=== PATIENT | female | born 1940 | race Caucasian/White ===

== ENCOUNTER → 2018-10-12 11:40 | Outpatient (CLI) | payer MEDICARE, OTHER, SELFPAY ==
[2018-10-12 13:39] LABS: Erythrocyte Sedimentation Rate 66 MM/HR (0-20)
== END ==
PROVIDERS: PCP Family Medicine; Visit Provider Family Medicine
DX: R29.818 Other symptoms and signs involving the nervous system (principal)
CPT/HCPCS: 36415; 85651

== ENCOUNTER → 2018-10-17 08:04 | Outpatient (CLI) | payer MEDICARE, OTHER, SELFPAY ==
--- NOTE | 2018-10-17 08:05 | DI.MRI.S_ITS ---
PROCEDURE: MR HEAD/BRAIN WO CON INDICATIONS: change in frequency of auras+ headaches L side TECHNIQUE: Non-contrast axial T1 spin echo, axial T2 fast spin echo, sagittal and axial FLAIR, coronal T2 fast spin echo, axial gradient echo, axial diffusion and ADC through the brain. COMPARISON: [facility], MR, MR BRAIN W&WO CON, 11/28/2015, 9:50. FINDINGS: Image quality: Excellent. CSF spaces: Ventricles appear symmetric in size and shape. Basal cisterns are patent. No extra-axial fluid collections. Brain: No intracranial bleeds or mass effects. There is cerebral volume loss for age. There are periventricular and deep white matter chronic small vessel ischemic changes. Brainstem appears normal. Diffusion-weighted images show no acute ischemic insults. No chronic ischemic insults. Normal intravascular flow voids are present. Skull and face: Calvarial bone marrow is normal in signal. Orbits are normal. Sinuses: Bilateral mastoid fluid is present. Retention cysts within the right anterior ethmoid and right anterior maxillary sinuses are present. IMPRESSION: 1. No acute process. No recent infarct.. 2. Volume loss and small vessel ischemic disease. 3. Mastoid fluid. Dictated by: Andres Moreno M.D. on 10/19/2018 at 9:51 Approved by: Andres Moreno M.D. on 10/19/2018 at 9:54
== END ==
PROVIDERS: PCP Family Medicine; Visit Provider Family Medicine
DX: R29.818 Other symptoms and signs involving the nervous system (principal); R51 Headache
CPT/HCPCS: 70551

== ENCOUNTER 2022-09-20 20:17 | Emergency (ER) | payer MEDICARE, OTHER, SELFPAY ==
[2022-09-20] VITALS (10 sets, daily range): BP systolic 113–142; BP diastolic 56–69; PULSE 112–137; RESP 19–35; TEMP 37.2; O2SAT 96–100; BMI 33.6
--- NOTE | 2022-09-20 21:31 | ED.NAVMDI ---
HPI - Nausea/Vomiting/Diarrhea General Chief complaint: Nausea/Vomiting/Diarrhea Stated complaint: Sinus/ear/jaw pain, bowel issues for 5 days Time Seen by Provider: 09/20/22 21:23 Source: patient Mode of arrival: Ambulatory Limitations: no limitations History of Present Illness HPI Narrative: Patient is a 82-year-old male who states she is had diarrhea for the past 5 days. She also states she is been having some issues with her right sinuses and ear pain and jaw pain. No rashes. No chest pain. No shortness of breath. No urinary symptoms. She is not taken any of her medicines in the past couple days because she is afraid of eating or drinking causing her diarrhea to be worse. She reports no travel. No recent antibiotics. No abdominal pain. No black colored stools or dark-colored stools. Related Data Home Medications Medication Instructions Recorded Confirmed amlodipine 10 mg tablet (Norvasc) 10 mg PO QDAY ##0 04/16/13 10/22/18 atorvastatin 40 mg tablet (Lipitor) 40 mg PO HS ##0 04/16/13 10/22/18 levothyroxine 125 mcg tablet 125 mcg PO QDAY ##0 04/16/13 10/22/18 (Synthroid) losartan 100 mg tablet (Cozaar) 100 mg PO QDAY ##0 04/16/13 10/22/18 topiramate 25 mg tablet (Topamax) 25 mg PO BID ##0 04/16/13 10/22/18 Midren PO 10/12/18 10/22/18 apixaban 5 mg tablet 5 mg PO BID 10/12/18 10/22/18 cevimeline 30 mg capsule 30 mg PO ONCE 10/12/18 10/22/18 cyclosporine 0.05 % eye drops in a EYE-BOTH 10/12/18 10/22/18 dropperette (Restasis) ferrous sulfate 325 mg (65 mg 325 mg PO DAILY 10/12/18 10/22/18 iron) tablet flecainide 100 mg tablet 100 mg PO Q12H 10/12/18 10/22/18 hydroxychloroquine 200 mg tablet 200 mg PO DAILY 10/12/18 10/22/18 insulin glargine 100 unit/mL (3 10 unit SUBCUT DAILY 10/12/18 10/22/18 mL) subcutaneous pen (Lantus Solostar U-100 Insulin) lamotrigine 100 mg tablet 50 mg PO BID 10/12/18 10/22/18 (Lamictal) metformin 500 mg tablet,extended 500 mg PO QPM 10/12/18 10/22/18 release 24 hr metoprolol succinate 50 mg 50 mg PO BID 10/12/18 10/22/18 tablet,extended release 24 hr (Toprol XL) nystatin-triamcinolone topical applictn topical 10/12/18 10/22/18 cream psyllium 1 tbsp PO DAILY 10/12/18 10/22/18 Previous Rx's Medication Instructions Recorded prednisone 5 mg tablet 5 mg PO QID #90 tabs 10/22/18 Allergies Allergy/AdvReac Type Severity Reaction Status Date / Time benazepril Allergy Severe ANGIOEDEMA Verified 09/20/22 20:48 morphine AdvReac Intermediate BP DROP Verified 09/20/22 20:48 niacin AdvReac Mild SEVERE Verified 09/20/22 20:48 FLUSH Review of Systems Constitutional Constitutional: Reports system reviewed and no additional complaints, except as documented ENT Ears, Nose, Mouth, and Throat: Reports system reviewed and no additional complaints, except as documented Respiratory Respiratory: Reports system reviewed and no additional complaints, except as documented Gastrointestinal Gastrointestinal: Reports system reviewed and no additional complaints, except as documented Integumentary/Breasts Skin/Breast: Reports system reviewed and no additional complaints, except as documented Neurologic Neurologic: Reports system reviewed and no additional complaints, except as documented Hematologic/Lymphatic On Anticoagulants: No Patient History Medical History Atrial fibrillation Social History Smoking Status: Former smoker Smoking Status: Former smoker alcohol intake frequency: holidays/special occasions only Substance Use Type: does not use Exam Initial Vital Signs Initial Vital Signs: Vital Signs Temperature 99.0 F 09/20/22 20:48 Pulse Rate 137 H 09/20/22 20:48 Respiratory Rate 22 09/20/22 20:48 Blood Pressure 113/58 L 09/20/22 20:48 Pulse Oximetry 100 09/20/22 20:48 Oxygen Delivery Method 09/20/22 20:48 Const General: cooperative and comfortable HENMT Head: normal to inspection and normocephalic Ears: TM normal on the right and EAC's normal Face and sinus: normal facial exam, no abrasions, no erythema and no edema Mouth: oral mucosae normal Resp Effort & Inspection: normal respiratory effort Auscultation: clear to auscultation bilaterally Cardio Rate: tachycardic Rhythm: regular rhythm GI Inspection: normal to inspection Palpation: soft, No firm and No tender Skin General: no rashes or lesions noted Neuro General: patient alert, patient awake and moves all extremities Extrem General: normal to inspection and capillary refill normal Course Orders Ordered: ED Orders 09/21/22 EKG-12 Lead Routine 09/21/22 00:14 GI Panel (Film Array) Stat Discontinued Medications Sodium Chloride (Normal Saline 0.9%) 1,000 mls @ 1,000 mls/hr IV BOLUS ONE Stop: 09/20/22: Last Infusion: 09/20/22 22:41 Dose: 0 mls/hr Documented By: Admin: 09/20/22 21:41 Dose: 1,000 mls/hr Documented By: JOSEMANUEL Vital Signs Vital signs: Vital Signs - 8 hr 09/20/22 23:30 09/21/22 00:00 09/21/22 00:24 Temperature 97.4 F L Pulse Rate 112 H 112 H 108 H Respiratory Rate 25 H 23 18 Blood Pressure 128/70 Pulse Oximetry 97 90 L 95 Oxygen Delivery Method Room Air MDM - Nausea/Vomiting/Diarrhea Differential Diagnosis Differential diagnosis: Likely traveler's diarrhea, food poisoning, gastroenteritis, clostridium difficile infection and dehydration Condition is:: Improved Chronic Condition is having:: Mild excerbation Lab Data 09/20/22 21:10 09/20/22 21:10 Labs: Lab Results 09/20/22 09/20/22 09/20/22 Range/Units 21:10 21:10 23:55 WBC 0.3 L* (4.5-11.0) X10^3/uL RBC 2.69 L (4.0-5.2) X10^6/uL Hgb 8.8 L (12.0-16.0) g/dL Hct 26.8 L (36-46) % MCV 99.5 (80-100) fL MCH 32.9 (26-34) PG MCHC 33.0 (30-36) % RDW 17.0 H (11.6-14.8) % Plt Count 78 L (150-400) X10^3/uL Neut % (Auto) Not Reportable Lymph % (Auto) Not Reportable [place] % (Auto) Not Reportable Eos % (Auto) Not Reportable Baso % (Auto) Not Reportable Lymph # (Auto) Not Reportable [place] # (Auto) Not Reportable Baso # (Auto) Not Reportable Sodium 135 L (137-145) mmol/L Potassium 3.6 (3.4-5.1) mmol/L Chloride 100 (98-107) mmol/L Carbon Dioxide 21 L (22-32) mmol/L BUN 23 H (7-17) mg/dL Creatinine 1.29 H (0.52-1.04) mg/dL Estimated GFR 42 L (>60) mL/min BUN/Creatinine Ratio 17.8 (6-22) Glucose 137 H (80-110) mg/dL Calcium 7.8 L (8.4-10.2) mg/dL Total Bilirubin 1.5 H (0.2-1.3) mg/dL AST 89 H (14-36) IU/L ALT 77 H (<35) IU/L Alkaline Phosphatase 126 (38-126) U/L Total Protein 7.1 (6.3-8.2) g/dL Albumin 3.6 (3.5-5.0) g/dL Globulin 3.5 (1.7-4.1) g/dL Albumin/Globulin Ratio 1.0 (1.0-2.8) Lipase 50 (23-300) U/L Stl C. cayetanensis PCR Not detected (Not Detect) Stool Rotavirus (PCR) Not detected (Not Detect) Stool Adenovirus (PCR) Not detected (Not Detect) Stool Astrovirus (PCR) Not detected (Not Detect) Stool Cryptosporidium PCR Not detected (Not Detect) Stl E.coli Shiga Tox PCR Not detected (Not Detect) St Sh/Enteroin Ecoli PCR Not detected (Not Detect) Stool E coli O157 PCR Not Reportable Stl Enterotoxigenic E PCR Not detected (Not Detect) Stool EPEC (PCR) Not detected (Not Detect) Stl E. histolytica PCR Not detected (Not Detect) Stool Giardia Lamblia PCR Not detected (Not Detect) Stool Sapovirus (PCR) Not detected (Not Detect) Stl P. shigelloides PCR Not detected (Not Detect) St Y.enterocolitica PCR Not detected (Not Detect) Stool Vibrio (PCR) Not detected (Not Detect) Stl Vibrio cholerae PCR Not detected (Not Detect) Stl Enteroaggr Ecoli PCR Not detected (Not Detect) Stl Norovirus GI/GII PCR Not detected (Not Detect) Campylobacter (PCR) Not detected (Not Detect) C. difficile Tox (PCR) Not detected (Not Detect) Salmonella (PCR) Not detected (Not Detect) ECG Data Attestation: I personally reviewed and interpreted this ECG as follows: Interpretation: Sinus tachycardia Ventricular rate [address] T wave change MDM Narrative Medical decision making narrative: Patient does have a benign exam. Labs unremarkable. Stool studies unremarkable. Patient has not taken any for medicines in the past couple days given the amount of diarrhea that she is had suspect that this is why her heart rate is elevated. She received fluids. Her heart rate improved. After the fluid she stated that she felt much better. She tolerated oral intake. Has no indication for antibiotics. Will discharge patient home with instructions to continue to take all of her medications. No indication for antibiotics. Patient expressed understanding and agreement. Discharge Plan Departure Patient Disposition: Home Clinical Impression: Diarrhea Instructions: Diarrhea Activity Restrictions/Additional Instructions: I will contact you in the morning with the results of the stool studies that were still pending at the time of your discharge. Continue to take all of your medications as directed. Be sure to increase your fluid intake. Return to the emergency department for any new symptoms. Prescriptions: No Action levothyroxine [Synthroid] 125 MCG tablet 125 mcg PO QDAY Qty: 0 atorvastatin [Lipitor] 40 MG tablet 40 mg PO HS Qty: 0 losartan [Cozaar] 100 MG tablet 100 mg PO QDAY Qty: 0 amlodipine [Norvasc] 10 MG tablet 10 mg PO QDAY Qty: 0 topiramate [Topamax] 25 MG tablet 25 mg PO BID Qty: 0 prednisone 5 mg tablet 5 mg PO QID Qty: 90 0RF Rx Instructions: Four per day for 3 days. Three a day for 3 days. Then 2 a day. Follow-up with PCP by 1 week. apixaban 5 mg tablet 5 mg PO BID cevimeline 30 mg capsule 30 mg PO ONCE flecainide 100 mg tablet 100 mg PO Q12H hydroxychloroquine 200 mg tablet 200 mg PO DAILY Lantus Solostar U-100 Insulin 100 unit/mL (3 mL) insulin pen 10 unit SUBCUT DAILY ferrous sulfate 325 mg (65 mg iron) tablet 325 mg PO DAILY lamotrigine [Lamictal] 100 mg tablet 50 mg PO BID metformin 500 mg tablet extended release 24 hr 500 mg PO QPM nystatin-triamcinolone cream TOP psyllium powder 1 tbsp PO DAILY Restasis 0.05 % dropperette EYE-BOTH metoprolol succinate [Toprol XL] 50 mg tablet extended release 24 hr 50 mg PO BID Midren PO Referrals: Ximena Benson MD [Primary Care Provider] - Stand Alone Forms: Patient Portal/API
[2022-09-20 21:34] LABS: Hematocrit 26.8 % (36-46); Hemoglobin 8.8 g/dL (12.0-16.0); Mean Corpuscular Hemoglobin 32.9 PG (26-34); Mean Corpuscular Volume 99.5 fL (80-100); Platelet Count 78 X10^3/uL (150-400); Red Blood Cell Count 2.69 X10^6/uL (4.0-5.2)
[2022-09-20 21:36] LABS: Alanine Aminotransferase 77 IU/L (<35); Albumin 3.6 g/dL (3.5-5.0); Alkaline Phosphatase 126 U/L (38-126); Aspartate Aminotransferase 89 IU/L (14-36); BUN Creatinine Ratio 17.8 (6-22); Bilirubin Total 1.5 mg/dL (0.2-1.3); Blood Urea Nitrogen 23 mg/dL (7-17); Calcium 7.8 mg/dL (8.4-10.2); Carbon Dioxide 21 mmol/L (22-32); Chloride 100 mmol/L (98-107); Estimated Glomerular Filt Rate 42 mL/min (>60); Globulin 3.5 g/dL (1.7-4.1); Glucose 137 mg/dL (80-110); HEMOLYSIS < 15 (0-50); Lipase 50 U/L (23-300); Potassium 3.6 mmol/L (3.4-5.1); Sodium 135 mmol/L (137-145); Total Protein 7.1 g/dL (6.3-8.2)
[2022-09-20 21:38] LABS: Add Manual Diff / Slide Review NO
[2022-09-20 21:40] LABS: White Blood Cell Count 0.3 X10^3/uL (4.5-11.0)
[2022-09-20] MEDS: SODIUM CHLORIDE 0.9% 1,000 ML 1000 ML IV (21:41)
[2022-09-21] VITALS: PULSE 112; RESP 23; O2SAT 90
[2022-09-21 00:24] VITALS: BP 128/70; PULSE 108; RESP 18; TEMP 36.3; O2SAT 95
[2022-09-21 02:39] LABS: Adenovirus F 40/41 Not Detected (Not Detect); Campylobacter Not Detected (Not Detect); Clostridium difficile toxin AB Not Detected (Not Detect); Cryptosporidium Not Detected (Not Detect); Cyclospora cayetanensis Not Detected (Not Detect); Entamoeba histolytica Not Detected (Not Detect); Enteroaggregative E.coli Not Detected (Not Detect); Enteropathogenic E.coli Not Detected (Not Detect); Enterotoxigenic E.coli It/st Not Detected (Not Detect); Giardia lamblia Not Detected (Not Detect); Plesiomonsa shigelloides Not Detected (Not Detect); Salmonella Not Detected (Not Detect); Shiga-like toxin-prod E.coli Not Detected (Not Detect); Shigella/Enteroinvasive E.coli Not Detected (Not Detect); Vibrio Not Detected (Not Detect); Vibrio cholerae Not Detected (Not Detect); Yersinia enterocolitica Not Detected (Not Detect)
[2022-09-21 02:40] LABS: Astrovirus Not Detected (Not Detect); Norovirus GI/GII Not Detected (Not Detect); Rotavirus A Not Detected (Not Detect); Sapovirus Not Detected (Not Detect)
== END 2022-09-21 00:26 | disposition home or self-care (01) ==
PROVIDERS: Emergency Provider Emergency Medicine; PCP Family Medicine
DX: R19.7 Diarrhea, unspecified (principal); H92.01 Otalgia, right ear; R00.0 Tachycardia, unspecified
CPT/HCPCS: 36415; 80053; 83690; 85025; 87507; 93005; 99284

== ENCOUNTER → 2023-05-16 09:59 | Outpatient (CLI) | payer MEDICARE, OTHER, SELFPAY ==
--- NOTE | 2023-05-16 | DI.NM.S_ITS ---
PROCEDURE: NM ISIAH PERF SPECT R&S PHARM Rest and pharmacological stress myocardial perfusion SPECT with gated imaging and ejection fraction RADIOPHARMACEUTICAL: 12 mCi Tc-99m tetrafosmin IV at rest and 27.1 mCi Tc-99m tetrafosmin IV at peak effect of pharmacological stress. A [id number] was performed. INDICATIONS: CHEST PAIN TECHNIQUE: Radiopharmaceutical was injected at peak stress test, and also at rest. SPECT images were obtained. SPECT myocardial perfusion images were displayed in short axis, horizontal long axis, and vertical long axis views. Gated images were reviewed using [employer] Software software. COMPARISON: None. CARDIAC STRESS: A pharmacologic stress test was performed under the supervision of an attending staff, using an infusion of regadenoson 0.4 mg IV. Hemodynamic data: There is normal blood pressure and heart rate response to pharmacologic stress. Symptoms: The patient denied anginal chest pain. EKG: No diagnostic changes of ischemia; no ectopy. FINDINGS: Raw data: There is good myocardial uptake of radiotracer. No significant motion artifacts. [id number] ratio is 0.28 (normal is less than 0.38 for tetrafosmin tracer). Left ventricle function: Gated images demonstrate normal left ventricular wall thickening. No segmental wall motion abnormalities. No transient ischemic dilation; TID is 1.0 (normal less than 1.3). Left ventricle resting end diastolic volume is 76 mL. Left ventricle stress ejection fraction is >75%; normal range is above 45%. Myocardial perfusion: There is normal distribution of activity in the right and left ventricular myocardium. No fixed or reversible perfusion defects. IMPRESSION: Low risk study. No evidence of pharmacologic induced ischemia or scar. Normal LV size with hyperdynamic function. Dictated by: Nancy Horn D.O. on 05/16/2023 at 16:22 Approved by: Nancy Horn D.O. on 05/16/2023 at 16:23
== END ==
PROVIDERS: PCP Family Medicine; Referring Provider Internal Medicine Interventional Cardiology; Visit Provider Internal Medicine Interventional Cardiology
DX: R07.89 Other chest pain (principal)
CPT/HCPCS: 78452; 93017; A9502; J2785